=== PATIENT | female | born 1965 ===

== ENCOUNTER 2021-05-17 13:34 | Emergency (ER) | payer SELFPAY ==
[2021-05-17 13:41] VITALS: BP 135/75
[2021-05-17 14:33] LABS: Basophils % (Auto) 0.5 % (0.0-1.8); Eosinophils # (Auto) 0.1 K/mm3 (0.0-0.4); Eosinophils % (Auto) 2.2 % (0.0-4.3); Hematocrit 42.2 % (30.3-42.9); Hemoglobin 13.1 gm/dl (10.1-14.3); Lymphocytes # (Auto) 2.9 K/mm3 (1.2-5.4); Lymphocytes % (Auto) 47.4 % (13.4-35.0); Mean Corpuscular HGB Conc 31 % (30-34); Mean Corpuscular Volume 88 fl (79-97); Monocytes # (Auto) 0.4 K/mm3 (0.0-0.8); Monocytes % (Auto) 7.3 % (0.0-7.3); Platelet Count 195 K/mm3 (140-440); Red Blood Count 4.81 M/mm3 (3.65-5.03); Red Cell Distribution Width 13.7 % (13.2-15.2)
--- NOTE | 2021-05-17 14:34 | XRay Report ---
XR chest routine 2V INDICATION / CLINICAL INFORMATION: cough COMPARISON: None available. FINDINGS: SUPPORT DEVICES: None. HEART / MEDIASTINUM: No significant abnormality. LUNGS / PLEURA: Lungs are clear. Costophrenic sulci are sharp. No pneumothorax. ADDITIONAL FINDINGS: No significant additional findings. IMPRESSION: 1. No acute findings. Signer Name: Reggie Rachel MD Signed: 05/17/2021 2:30 PM Workstation Name: [id number]
[2021-05-17 14:58] LABS: Alanine Aminotransferase 10 units/L (7-56); Blood Urea Nitrogen 11 mg/dL (7-17); Calcium 9.3 mg/dL (8.4-10.2); Hemolysis Index 3
[2021-05-17 15:00] LABS: BUN/Creatinine Ratio 18
--- NOTE | 2021-05-17 15:05 | Emergency Department Report ---
- General Chief Complaint: Chest Pain Stated Complaint: CP, DE LA TORRE, BODYACHES X 2 DAYS Time Seen by Provider: 05/17/21 13:58 Source: patient Mode of arrival: Ambulatory Limitations: No Limitations - History of Present Illness Initial Comments: Patient is a 55-year-old female presents emergency room with complaints of a cough that began 2 weeks ago. She has associated mucus production. Patient states that she has had subjective fever and chills. She states that she is also been having body aches and headache. Patient states that she is a smoker. She has a past medical history of hypertension and diabetes and states that she has not been on medication in 3 years. She reports that she is supposed to be taking Metformin. She denies any medication allergies. Patient states that she tested positive for Covid approximately 2 months ago. - Related Data Previous Rx's Medication Instructions Recorded Last Taken Type Acetaminophen/Codeine [Tylenol 1 tab PO Q6H PRN #10 tab 05/17/21 Unknown Rx /Codeine # 3 tab] Albuterol Sulfate [Proventil Hfa] 1 puff IH TID PRN #1 hfa.aer.ad 05/17/21 Unknown Rx Benzonatate [Tessalon Perles] 100 mg PO Q8HR PRN #10 capsule 05/17/21 Unknown Rx Doxycycline Hyclate [Doxycycline 100 mg PO BID 7 Days #14 tab 05/17/21 Unknown Rx Hyclate TAB] guaiFENesin ER [Mucinex ER] 600 mg PO Q12H #14 tablet.er 05/17/21 Unknown Rx metFORMIN [Glucophage] 500 mg PO BID #60 tablet 05/17/21 Unknown Rx Allergies Allergy/AdvReac Type Severity Reaction Status Date / Time No Known Allergies Allergy Unverified 05/17/21 13:46 ED Review of Systems ROS: Stated complaint: CP, DE LA TORRE, BODYACHES X 2 DAYS Other details as noted in HPI Comment: All other systems reviewed and negative ED Past Medical Hx - Medications Home Medications: Home Medications Medication Instructions Recorded Confirmed Last Taken Type Acetaminophen/Codeine [Tylenol 1 tab PO Q6H PRN #10 tab 05/17/21 Unknown Rx /Codeine # 3 tab] Albuterol Sulfate [Proventil Hfa] 1 puff IH TID PRN #1 hfa.aer.ad 05/17/21 Unknown Rx Benzonatate [Tessalon Perles] 100 mg PO Q8HR PRN #10 capsule 05/17/21 Unknown Rx Doxycycline Hyclate [Doxycycline 100 mg PO BID 7 Days #14 tab 05/17/21 Unknown Rx Hyclate TAB] guaiFENesin ER [Mucinex ER] 600 mg PO Q12H #14 tablet.er 05/17/21 Unknown Rx metFORMIN [Glucophage] 500 mg PO BID #60 tablet 05/17/21 Unknown Rx ED Physical Exam - General Limitations: No Limitations General appearance: alert, in no apparent distress - Head Head exam: Present: atraumatic, normocephalic - Eye Eye exam: Present: normal appearance - ENT ENT exam: Present: mucous membranes moist - Respiratory Respiratory exam: Present: normal lung sounds bilaterally. Absent: respiratory distress, wheezes, rales, rhonchi, stridor, chest wall tenderness, accessory muscle use, decreased breath sounds, prolonged expiratory - Cardiovascular Cardiovascular Exam: Present: regular rate, normal rhythm, normal heart sounds. Absent: systolic murmur, diastolic murmur, rubs, gallop - Neurological Exam Neurological exam: Present: alert, oriented X3 - Psychiatric Psychiatric exam: Present: normal affect, normal mood - Skin Skin exam: Present: warm, dry, intact ED Course Vital Signs 05/17/21 05/17/21 13:36 14:42 Temperature 97.6 F 98.2 F Pulse Rate 62 Respiratory 20 Rate Blood Pressure 135/75 [Right] O2 Sat by Pulse 97 Oximetry ED Medical Decision Making - Lab Data Result diagrams: 05/17/21 14:09 05/17/21 14:09 - Radiology Data Radiology results: report reviewed Ordering Physician: AGUILAR HILL Date of Service: 05/17/21 Procedure(s): XR chest routine 2V Accession Number(s): [id number] cc: AGUILAR HILL Fluoro Time In Minutes: XR chest routine 2V INDICATION / CLINICAL INFORMATION: cough COMPARISON: None available. FINDINGS: SUPPORT DEVICES: None. HEART / MEDIASTINUM: No significant abnormality. LUNGS / PLEURA: Lungs are clear. Costophrenic sulci are sharp. No pneumothorax. ADDITIONAL FINDINGS: No significant additional findings. IMPRESSION: 1. No acute findings. Signer Name: Reggie Rachel MD Signed: 05/17/2021 2:30 PM Workstation Name: [id number] Transcribed By: ZOFIA Dictated By: Reggie Rachel MD Electronically Authenticated By: Reggie Rachel MD Signed Date/Time: 05/17/21 1430 DD/ 1429 TD/TT: - Medical Decision Making Patient is a 55-year-old female presents emergency room with complaints of a cough that began 2 weeks ago. She has associated mucus production. Patient states that she has had subjective fever and chills. She states that she is also been having body aches and headache. Patient states that she is a smoker. She has a past medical history of hypertension and diabetes and states that she has not been on medication in 3 years. She reports that she is supposed to be taking Metformin. She denies any medication allergies. Patient states that she tested positive for Covid approximately 2 months ago. Vitals are stable. Breath sounds are clear bilaterally, no wheezing, no rales, no rhonchi, no respiratory distress, no excessive muscle use. Labs with blood glucose of 324, patient has been off her Metformin for 3 years. Chest x-ray 1. No acute findings. Given that patient is a current every day smoker and is having sputum production and symptoms have been ongoing for 2 weeks, will cover patient with antibiotics for bronchitis. Given patient's uncontrolled diabetes, would not use steroids at this time. She has no active wheezing on exam. Patient given prescription for medication and given refill of her Metformin. Advised patient Please take medication as prescribed. Please stop smoking. Follow-up with your primary care doctor for management of your chronic conditions. Return to emergency room for any new or worsening symptoms. Critical care attestation.: If time is entered above; I have spent that time in minutes in the direct care of this critically ill patient, excluding procedure time. ED Disposition Clinical Impression: Tobacco use, Hyperglycemia, Non compliance w medication regimen Acute bronchitis Qualifiers: Bronchitis organism: unspecified organism Qualified Code(s): J20.9 - Acute bronchitis, unspecified Disposition: 01 HOME / SELF CARE / HOMELESS Is pt being admited?: No Does the pt Need Aspirin: No Condition: Stable Instructions: Preventing Type 2 Diabetes Mellitus, Steps to Quit Smoking, Acute Bronchitis, Adult, Acute Bronchitis (ED) Additional Instructions: Please take medication as prescribed. Please stop smoking. Follow-up with your primary care doctor for management of your chronic conditions. Return to emergency room for any new or worsening symptoms. Prescriptions: Doxycycline Hyclate [Doxycycline Hyclate TAB] 100 mg PO BID 7 Days #14 tab metFORMIN [Glucophage] 500 mg PO BID #60 tablet guaiFENesin ER [Mucinex ER] 600 mg PO Q12H #14 tablet.er Albuterol Sulfate [Proventil Hfa] 1 puff IH TID PRN #1 hfa.aer.ad PRN Reason: shortness of breath/wheezing Benzonatate [Tessalon Perles] 100 mg PO Q8HR PRN #10 capsule PRN Reason: cough Acetaminophen/Codeine [Tylenol /Codeine # 3 tab] 1 tab PO Q6H PRN #10 tab PRN Reason: severe pain Referrals: GEOFFREY MAYA MD [Staff Physician] - 3-5 Days [facility] [Provider Group] - 3-5 Days [facility], [LAB/CONTRACT] - 3-5 Days [facility] [Outside] - 3-5 Days Forms: Work/School Release Form(ED) Time of Disposition: 15:03 Print Language: TAJIK
== END 2021-05-17 15:27 | disposition home or self-care (01) ==
LOC: ED 13:34
DX: E11.65 Type 2 diabetes mellitus with hyperglycemia (principal); Z72.0 Tobacco use; Z91.14 Patient's other noncompliance with medication regimen; J20.9 Acute bronchitis, unspecified; I10 Essential (primary) hypertension
CPT/HCPCS: 36415; 71046; 80053; 85025; 99283